=== PATIENT | female | born 1960 | race Caucasian/White ===

== ENCOUNTER 2021-06-13 11:44 | Observation (INO) ==
[2021-06-13 12:18] LABS: Basophils % 0.6 %; Eosinophils # 0.1 K/mcL (0.0-0.6); Eosinophils % 1.1 %; Hemoglobin 14.1 g/dL (11.5-15.4); Immature Granulocytes % 0.3 % (0-4); Lymphocytes # 1.7 K/mcL (0.6-4.6); Lymphocytes % 26.3 %; Mean Corpuscular HGB Conc 31.3 g/dL (31.6-35.5); Mean Corpuscular Hemoglobin 29.7 pg (28.0-33.3); Mean Corpuscular Volume 94.7 fL (83.0-100.0); Mean Platelet Volume 9.9 fL (9.4-12.4); Monocytes # 0.5 K/mcL (0.0-1.3); Monocytes % 8.2 %; Neutrophils # 4.1 K/mcL (1.6-8.9); Platelet Count 151 K/mcL (140-400); Red Blood Count 4.75 M/mcL (3.82-4.97); Red Cell Distribution Width 13.8 % (11.5-14.5); Segmented Neutrophils % 63.5 %; White Blood Count 6.5 K/mcL (4.3-11.1)
[2021-06-13 12:40] LABS: BUN/Creatinine Ratio 11 (6-26); Blood Urea Nitrogen 12 mg/dL (8-23); Carbon Dioxide 33 mEq/L (23-29); Chloride 102 mEq/L (98-107); Glucose 93 mg/dL (70-105); Osmolality,Calculated 287 (280-300); Potassium 4.4 mEq/L (3.5-5.1); Sodium 139 mEq/L (136-145); eGFR For African Americans > 60 (> 60); eGFR For Non-African Americans 53 (> 60)
[2021-06-13 12:41] LABS: Troponin I < 0.03 ng/mL (< 0.04)
[2021-06-13 13:10] LABS: Influenza A PCR Negative (Negative); Influenza B PCR Negative (Negative); Resp. Syncytial Virus PCR Negative (Negative)
[2021-06-13 13:11] LABS: SARS-CoV-2 by PCR (In House) Negative (Negative)
[2021-06-13] MEDS ORDERED: methylPREDNISolone 125 MG/2 ML VIAL IVP ONE (13:35)
[2021-06-13] MEDS ORDERED: Ipratropium/Albuterol Neb 3 ML IH ONE (13:35)
[2021-06-13] MEDS ORDERED: cefTRIAXone 1,000 MG in Water for inj. (sterile) 10 ML IVP ONE (13:37)
[2021-06-13] MEDS ORDERED: Azithromycin 500 MG in 0.9 % Sodium Chloride 250 ML IVPB ONE (13:37)
[2021-06-13] MEDS ORDERED: Naloxone 0.4 MG/ML INJ IVP PRN (15:53)
[2021-06-13] MEDS ORDERED: Ipratropium/Albuterol Neb 3 ML IH PRN (15:54)
[2021-06-13] MEDS ORDERED: Azithromycin 250 MG TABLET PO SCH (17:45)
[2021-06-13] MEDS ORDERED: methylPREDNISolone 125 MG/2 ML VIAL IVP SCH (18:00)
[2021-06-13] MEDS: *HR* Heparin 5,000 UNIT/ML VIAL SQ SCH (18:05)
[2021-06-13] MEDS: Ipratropium/Albuterol Neb 3 ML IH SCH (21:18)
[2021-06-14 03:21] LABS: Basophils % 0.1 %; Hematocrit 48.2 % (35.3-44.9); Hemoglobin 14.6 g/dL (11.5-15.4); Immature Granulocytes % 0.4 % (0-4); Lymphocytes # 0.6 K/mcL (0.6-4.6); Lymphocytes % 9.5 %; Mean Corpuscular HGB Conc 30.3 g/dL (31.6-35.5); Mean Corpuscular Hemoglobin 28.5 pg (28.0-33.3); Mean Corpuscular Volume 94.1 fL (83.0-100.0); Mean Platelet Volume 10.2 fL (9.4-12.4); Monocytes # 0.3 K/mcL (0.0-1.3); Monocytes % 3.7 %; Neutrophils # 5.8 K/mcL (1.6-8.9); Platelet Count 156 K/mcL (140-400); Red Blood Count 5.12 M/mcL (3.82-4.97); Red Cell Distribution Width 13.6 % (11.5-14.5); Segmented Neutrophils % 86.3 %; White Blood Count 6.8 K/mcL (4.3-11.1)
[2021-06-14 03:22] LABS: BUN/Creatinine Ratio 12 (6-26); Blood Urea Nitrogen 13 mg/dL (8-23); Calcium 9.5 mg/dL (8.6-10.3); Carbon Dioxide 28 mEq/L (23-29); Chloride 101 mEq/L (98-107); Glucose 177 mg/dL (70-105); Osmolality,Calculated 286 (280-300); Potassium 4.7 mEq/L (3.5-5.1); Sodium 136 mEq/L (136-145); eGFR For African Americans > 60 (> 60); eGFR For Non-African Americans 52 (> 60)
[2021-06-14] MEDS: Ipratropium/Albuterol Neb 3 ML IH SCH ×4 (03:59→20:49)
[2021-06-14] MEDS: *HR* Heparin 5,000 UNIT/ML VIAL SQ SCH ×2 (06:55→17:52)
[2021-06-14] MEDS: methylPREDNISolone 125 MG/2 ML VIAL IVP SCH ×2 (06:58→18:15)
[2021-06-14] MEDS ORDERED: *HR* LORazepam 1 MG TABLET PO PRN (10:26)
[2021-06-14] MEDS: risperiDONE 1 MG TABLET PO SCH (11:02)
[2021-06-14] MEDS: Loratadine 10 MG TABLET PO SCH (11:03)
[2021-06-14] MEDS: Perphenazine 8 MG TABLET PO SCH ×3 (11:03→21:23)
[2021-06-14] MEDS: Azithromycin 250 MG TABLET PO SCH (14:54)
[2021-06-14] MEDS ORDERED: risperiDONE 1 MG TABLET PO SCH (21:00)
[2021-06-15] MEDS: Ipratropium/Albuterol Neb 3 ML IH SCH ×4 (03:52→21:57)
[2021-06-15] MEDS: *HR* Heparin 5,000 UNIT/ML VIAL SQ SCH ×2 (06:17→16:48)
[2021-06-15] MEDS: methylPREDNISolone 125 MG/2 ML VIAL IVP SCH ×2 (06:17→16:49)
[2021-06-15 07:19] LABS: Basophils % 0.2 %; Hematocrit 46.1 % (35.3-44.9); Hemoglobin 14.5 g/dL (11.5-15.4); Immature Granulocytes % 0.5 % (0-4); Lymphocytes # 0.8 K/mcL (0.6-4.6); Lymphocytes % 6.6 %; Mean Corpuscular HGB Conc 31.5 g/dL (31.6-35.5); Mean Corpuscular Hemoglobin 29.6 pg (28.0-33.3); Mean Corpuscular Volume 94.1 fL (83.0-100.0); Mean Platelet Volume 10.3 fL (9.4-12.4); Monocytes # 0.8 K/mcL (0.0-1.3); Monocytes % 6.6 %; Neutrophils # 9.7 K/mcL (1.6-8.9); Platelet Count 178 K/mcL (140-400); Red Cell Distribution Width 13.8 % (11.5-14.5); Segmented Neutrophils % 86.1 %
[2021-06-15 07:29] LABS: White Blood Count 11.3 K/mcL (4.3-11.1)
[2021-06-15 07:41] LABS: BUN/Creatinine Ratio 20 (6-26); Blood Urea Nitrogen 18 mg/dL (8-23); Calcium 9.6 mg/dL (8.6-10.3); Carbon Dioxide 29 mEq/L (23-29); Chloride 102 mEq/L (98-107); Glucose 124 mg/dL (70-105); Osmolality,Calculated 287 (280-300); Potassium 4.4 mEq/L (3.5-5.1); Sodium 137 mEq/L (136-145); eGFR For African Americans > 60 (> 60); eGFR For Non-African Americans > 60 (> 60)
[2021-06-15] MEDS: risperiDONE 1 MG TABLET PO SCH ×3 (07:58→20:11)
[2021-06-15] MEDS: Loratadine 10 MG TABLET PO SCH (08:04)
[2021-06-15] MEDS: Perphenazine 8 MG TABLET PO SCH ×3 (08:04→20:11)
[2021-06-15] MEDS: Azithromycin 250 MG TABLET PO SCH (14:00)
[2021-06-15] MEDS: Isovue-370 500 ML BOTTLE IVP ONE (18:33)
[2021-06-15] MEDS ORDERED: risperiDONE 1 MG TABLET PO SCH (20:00)
[2021-06-16 03:28] LABS: Basophils % 0.1 %; Hematocrit 46.9 % (35.3-44.9); Immature Granulocytes % 0.4 % (0-4); Lymphocytes # 0.9 K/mcL (0.6-4.6); Lymphocytes % 8.5 %; Mean Corpuscular Hemoglobin 29.7 pg (28.0-33.3); Mean Corpuscular Volume 92.9 fL (83.0-100.0); Mean Platelet Volume 10.6 fL (9.4-12.4); Monocytes # 0.6 K/mcL (0.0-1.3); Monocytes % 5.8 %; Neutrophils # 8.7 K/mcL (1.6-8.9); Platelet Count 172 K/mcL (140-400); Red Blood Count 5.05 M/mcL (3.82-4.97); Red Cell Distribution Width 13.8 % (11.5-14.5); Segmented Neutrophils % 85.2 %; White Blood Count 10.3 K/mcL (4.3-11.1)
[2021-06-16 03:47] LABS: BUN/Creatinine Ratio 22 (6-26); Blood Urea Nitrogen 19 mg/dL (8-23); Calcium 9.8 mg/dL (8.6-10.3); Carbon Dioxide 32 mEq/L (23-29); Chloride 99 mEq/L (98-107); Glucose 140 mg/dL (70-105); Osmolality,Calculated 289 (280-300); Potassium 4.1 mEq/L (3.5-5.1); Sodium 137 mEq/L (136-145); eGFR For African Americans > 60 (> 60); eGFR For Non-African Americans > 60 (> 60)
[2021-06-16] MEDS: Ipratropium/Albuterol Neb 3 ML IH SCH (04:05)
[2021-06-16] MEDS: methylPREDNISolone 125 MG/2 ML VIAL IVP SCH (05:53)
[2021-06-16] MEDS: *HR* Heparin 5,000 UNIT/ML VIAL SQ SCH ×2 (05:54→16:42)
[2021-06-16] MEDS ORDERED: Ipratropium/Albuterol Neb 3 ML IH PRN (07:45)
[2021-06-16] MEDS: Perphenazine 8 MG TABLET PO SCH ×3 (08:04→20:31)
[2021-06-16] MEDS: risperiDONE 1 MG TABLET PO SCH ×3 (08:05→20:31)
[2021-06-16] MEDS: Loratadine 10 MG TABLET PO SCH (08:05)
[2021-06-16] MEDS: Azithromycin 250 MG TABLET PO SCH (16:42)
[2021-06-17 03:31] LABS: Basophils % 0.1 %; Eosinophils % 0.1 %; Hematocrit 48.7 % (35.3-44.9); Hemoglobin 15.3 g/dL (11.5-15.4); Immature Granulocytes % 0.5 % (0-4); Lymphocytes # 2.2 K/mcL (0.6-4.6); Lymphocytes % 24.9 %; Mean Corpuscular HGB Conc 31.4 g/dL (31.6-35.5); Mean Corpuscular Hemoglobin 29.2 pg (28.0-33.3); Mean Corpuscular Volume 92.9 fL (83.0-100.0); Mean Platelet Volume 10.4 fL (9.4-12.4); Monocytes # 0.7 K/mcL (0.0-1.3); Monocytes % 7.7 %; Neutrophils # 5.8 K/mcL (1.6-8.9); Platelet Count 178 K/mcL (140-400); Red Blood Count 5.24 M/mcL (3.82-4.97); Red Cell Distribution Width 13.9 % (11.5-14.5); Segmented Neutrophils % 66.7 %; White Blood Count 8.7 K/mcL (4.3-11.1)
[2021-06-17 03:53] LABS: Calcium 9.5 mg/dL (8.6-10.3); Potassium 4.1 mEq/L (3.5-5.1)
[2021-06-17] MEDS: *HR* Heparin 5,000 UNIT/ML VIAL SQ SCH ×2 (05:18→18:09)
[2021-06-17] MEDS: risperiDONE 1 MG TABLET PO SCH ×3 (10:14→22:11)
[2021-06-17] MEDS: Loratadine 10 MG TABLET PO SCH (10:14)
[2021-06-17] MEDS: Perphenazine 8 MG TABLET PO SCH ×3 (10:14→22:11)
[2021-06-17] MEDS: predniSONE 20 MG TABLET PO SCH (10:15)
[2021-06-17] MEDS: Azithromycin 250 MG TABLET PO SCH (13:55)
[2021-06-18] MEDS: *HR* Heparin 5,000 UNIT/ML VIAL SQ SCH (05:13)
[2021-06-18 06:03] LABS: Basophils % 0.2 %; Eosinophils % 0.4 %; Hematocrit 50.9 % (35.3-44.9); Hemoglobin 16.2 g/dL (11.5-15.4); Immature Granulocytes % 0.5 % (0-4); Lymphocytes # 2.2 K/mcL (0.6-4.6); Lymphocytes % 27.2 %; Mean Corpuscular HGB Conc 31.8 g/dL (31.6-35.5); Mean Corpuscular Hemoglobin 29.6 pg (28.0-33.3); Mean Corpuscular Volume 93.1 fL (83.0-100.0); Mean Platelet Volume 10.2 fL (9.4-12.4); Monocytes # 0.8 K/mcL (0.0-1.3); Monocytes % 9.4 %; Platelet Count 164 K/mcL (140-400); Red Blood Count 5.47 M/mcL (3.82-4.97); Red Cell Distribution Width 13.7 % (11.5-14.5); Segmented Neutrophils % 62.3 %
[2021-06-18 06:19] LABS: Calcium 9.3 mg/dL (8.6-10.3); Potassium 3.9 mEq/L (3.5-5.1)
[2021-06-18 07:03] VITALS: PULSE 64
[2021-06-18] MEDS: risperiDONE 1 MG TABLET PO SCH (07:59)
[2021-06-18] MEDS: Perphenazine 8 MG TABLET PO SCH ×2 (08:00→15:06)
[2021-06-18] MEDS: Loratadine 10 MG TABLET PO SCH (08:01)
[2021-06-18] MEDS: predniSONE 20 MG TABLET PO SCH (08:01)
[2021-06-18 09:59] VITALS: BP 116/77; TEMP 97.8; O2SAT 93
[2021-06-18 12:50] LABS: Influenza A PCR Negative (Negative); Influenza B PCR Negative (Negative); Resp. Syncytial Virus PCR Negative (Negative)
[2021-06-18 12:53] LABS: SARS-CoV-2 by PCR (In House) Negative (Negative)
== END 2021-06-18 18:00 ==
LOC: 3ANU 11:44 → EMEROOARM 11:44 → SUATTDRO 15:55 → 3ANU 16:43
PROVIDERS: ADMIT General Practice; ATTEND Internal Medicine